=== PATIENT | male | born 1975 | race Caucasian/White ===

== ENCOUNTER 2017-04-18 18:33 | Observation (INO) | payer BC ==
[2017-04-18] MEDS ORDERED: SODIUM CHLORIDE 0.9% (FLUSH) 10 ML SYG IV PRN ×2 (19:08→22:36)
[2017-04-18] MEDS ORDERED: ASPIRIN TABLET 325 MG TAB PO ONE (19:08)
--- NOTE | 2017-04-18 19:23 | RAD ---
EXAM DESCRIPTION: Chest,1 View CLINICAL HISTORY: chest pain COMPARISON: None FINDINGS: Cardiac silhouette is within normal limits. There is no focal parenchymal or pleural disease. There is no acute osseous process visualized. IMPRESSION: No evidence of acute cardiopulmonary disease. Electronically signed by: Dayton Michaud MD 04/18/2017 7:22 PM CDT
--- NOTE | 2017-04-18 21:26 | ED.PDOC ---
History of Present Illness - General Chief Complaint: Chest Pain/VT Stated Complaint: chest pain Time Seen by Provider: 04/18/17 18:45 Source: patient, family Exam Limitations: no limitations - History of Present Illness Timing/Duration: 4-6 hours Severity/Quality: moderate Location: substernal Chest Pain Radiation: no radiation Activities at Onset: rest Prior Chest Pain/Cardiac Workup: no prior chest pain, no prior cardiac workup Improving Factors: nothing Worsening Factors: nothing Aspirin Treatment Today: no aspirin today Associated Symptoms: denies symptoms Allergies/Adverse Reactions: Allergies NO KNOWN ALLERGY Allergy (Verified 04/18/17 19:05) Home Medications: Ambulatory Orders NK [NK] 04/18/17 Review of Systems - Review of Systems Constitutional: States: no symptoms reported EENTM: States: no symptoms reported Respiratory: States: short of breath. Denies: cough Cardiology: States: chest pain. Denies: edema, palpitations, syncope Gastrointestinal/Abdominal: States: no symptoms reported Genitourinary: States: no symptoms reported Musculoskeletal: States: no symptoms reported Skin: States: no symptoms reported Neurological: States: no symptoms reported Endocrine: States: no symptoms reported Past Medical History (General) - Patient Medical History Hx Hypertension: Yes Surgical History: no surgical history - Vaccination History Hx Influenza Vaccination: Yes - Social History Hx Tobacco Use: No Hx Alcohol Use: No Hx Substance Use: No Hx Substance Use Treatment: No Hx Depression: No Family Medical History - Family History Mother Family History: Unknown Physical Exam - Physical Exam General Appearance: Alert, Well Nourished Eyes, Ears, Nose, Throat Exam: PERRL/EOMI, normal ENT inspection Neck: non-tender, supple Respiratory: lungs clear, normal breath sounds, no respiratory distress, no accessory muscle use, other - STERNUM SLIGHTLY TTP. Cardiovascular/Chest: normal peripheral pulses, regular rate, rhythm, no murmur Peripheral Pulses: radial,right: 2+, radial,left: 2+ Gastrointestinal/Abdominal: normal bowel sounds, soft Extremity: non-tender, normal inspection Neurologic: alert, normal mood/affect Skin Exam: normal color, warm/dry Lymphatic: no adenopathy Progress - Results/Orders Results/Orders: TROP X 2 NEG. EKG NSR. CBC, CMP NEG. COAGS NEG. PAIN WORSE W/ DEEP BREATH AND TTP, SUGGESTIVE OF COSTOCHONDRITIS, HOWEVER HAS ACS RISK FACTORS OF OBESTIY, UNTREATED HTN, LUCY, AND SEDENTARY LIFESTYLE, THUS ADMITTING FOR SERIAL TROP OVERNIGHT FOR CP R/O. THANK YOU, [facility], FOR TAKING CARE OF THIS PATIENT! Departure - Departure Clinical Impression: Chest pain, Dyspnea, Hypertension, uncontrolled Disposition: Admit Patient Condition: Good Diet: low salt diet Home Medications: Ambulatory Orders NK [NK] 04/18/17 Decision To Admit - Decistion To Admit Decision to Admit Reason: Admit from ER
--- NOTE | 2017-04-18 22:04 | HP ---
SUPERVISING PHYSICIAN: Jose Cruz Loza MD CHIEF COMPLAINT: Chest pain. HISTORY OF PRESENT ILLNESS: This is a 42-year-old male patient who had some midsternal chest pain starting about 4 o'clock this afternoon. He was at work typing and had had some radiation to the left arm. He felt like it was very heavy. It had nothing to do with his exertion. He did say he thought it was worse when he took a deep breath. He did not take anything to alleviate it. He has not had this type of problem in the past. In the Emergency Room, his laboratory was done and CBC was within normal limits. Coags were within normal limits. Chemistries were within normal limits with the exception that his anion gap was slightly low at 11.6 and random glucose was 111. His initial cardiac enzymes were negative. His subsequent troponin one hour later was also less than 0.02. A chest x-ray per radiologic interpretation showed no acute cardiopulmonary disease. EKG showed normal sinus rhythm. Vital signs stable were stable. His chest pain did subsided although he said occasionally he did continue to have it, but it was improved. I was called to place the patient in the hospital for observation. PAST MEDICAL HISTORY: None. PAST SURGICAL HISTORY: None. OUTPATIENT MEDICATIONS: None. ALLERGIES: NO KNOWN DRUG ALLERGIES. SOCIAL HISTORY: He is the [employer]. He is . He lives between [facility]. He denies any tobacco, ETOH or illicit drug use. REVIEW OF SYSTEMS: GENERAL: Denies fever, fatigue or weight changes. HEENT: Denies sinus symptoms, ear pain, vision changes or sore throat. RESPIRATORY: Denies wheezing, coughing or shortness of breath. CARDIAC: As per history of present illness. GASTROINTESTINAL: Denies nausea, vomiting, diarrhea, constipation or abdominal pain. GENITOURINARY: Denies hematuria, dysuria or nocturia. SKIN: Denies lesions or rashes. NEUROLOGIC: Denies headache, dizziness, or seizures. PHYSICAL EXAMINATION: VITAL SIGNS: Afebrile. Heart rate 74. Blood pressure 147/87. Blood pressure did get as high as 180/105 on admission and stayed around 165/95. Respiratory rate 18. O2 saturation 98% on room air. GENERAL: This is a 42-year-old, mildly obese, male patient who is lying in his hospital bed. He is in no acute distress. HEENT: Normocephalic, atraumatic. Pupils are equal and reactive. Oropharynx is clear. NECK: Supple without mass. RESPIRATORY: Clear to auscultation bilaterally. CARDIOVASCULAR: Regular rate and rhythm, sinus rhythm on the compliance monitor. ABDOMEN: Soft, nondistended, nontender. Bowel sounds are present. EXTREMITIES: No cyanosis, clubbing or edema. NEUROLOGIC: Awake, alert and oriented times three. LABORATORY: Labs and films are as per the history of present illness. ASSESSMENT: 1. Chest pain, rule out myocardial infarction in a patient with no known cardiac history. 2. Elevated blood pressure without a diagnosis of hypertension. 3. Mild obesity. 4. Elevated blood sugars. PLAN: I will place the patient in observation. I have initiated chest pain protocol. He will have two more sets of cardiac enzymes. I will order a lipid panel in the morning as well as hemoglobin A1c due to his elevated blood glucose. I will watch his blood pressure and he may need to be started on a low dose of lisinopril. He does not have a family physician although he has seen Dr. Inocencia Luna in the past. I will call [facility] tomorrow and make sure that Dr. Luna will accept him as a patient, but he will need a close followup as well as a cardiac workup. We will need to follow with some routine lab and hopefully he will be able to be discharged in the morning. Otherwise, we will continue to monitor the patient closely and follow as needed. Dr. Loza is the collaborating physician and available for consultation. #[id number] [facility]
[2017-04-18] MEDS ORDERED: NITROGLYCERIN 0.4 MG 25 EA TAB SL PRN (22:36)
[2017-04-18] MEDS ORDERED: ACETAMINOPHEN 325 MG TAB PO PRN (22:36)
[2017-04-18] MEDS ORDERED: MORPHINE SULFATE INJ 10 MG/ML VIAL IV PRN (22:36)
[2017-04-18] MEDS ORDERED: IV SET AND CAP CHANGE INJ INJ SCH (23:00)
[2017-04-19] MEDS ORDERED: PANTOPRAZOLE SODIUM TAB 40 MG PO SCH (06:30)
[2017-04-19] MEDS ORDERED: LISINOPRIL 10 MG TAB PO ONE (08:49)
[2017-04-19] MEDS ORDERED: ASPIRIN TABLET 325 MG TAB PO SCH (09:00)
[2017-04-19] MEDS ORDERED: SODIUM CHLORIDE 0.9% (FLUSH) 10 ML SYG IV SCH (09:00)
[2017-04-19 09:20] VITALS: BP 164/101; TEMP 97.9; O2SAT 95
--- NOTE | 2017-04-19 14:05 | DS ---
SUPERVISING PHYSICIAN: Jose Cruz Loza MD DISCHARGE DIAGNOSIS: 1. Chest pain of unknown origin, may be due to costochondritis or elevated blood pressure. He has no significant cardiac history and his cardiac enzymes were negative with a normal EKG. 2. Elevated blood pressure without a diagnosis of hypertension, started on lisinopril in hospital. 3. Mild obesity. 4. Elevated blood sugars with a hemoglobin A1c of 5.3. 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 He had been at work and at about 4 PM on the day of admission, he started having some midsternal chest pain starting. He was at work typing and had had some radiation to the left arm. He felt like it was a very heavy feeling in his chest. It had nothing to do with his exertion. It felt worse when he took a deep breath. He did not take anything to alleviate it. He has not had this type of problem in the past. In the Emergency Room, his laboratory was done and CBC was within normal limits. Coags and chemistries were all within normal limits with the exception that his anion gap was slightly low at 11.6 and random glucose was 111. His initial cardiac enzymes were negative. His subsequent troponin one hour later was also less than 0.02. A chest x-ray per radiologic interpretation showed no acute cardiopulmonary disease. EKG showed normal sinus rhythm. Vital signs stable were stable except his blood pressure was elevated to 180/105 and most of the time the systolic was between 150 and 170 and the diastolic was in the 80s and 90s. He was placed in observation in the hospital. HOSPITAL COURSE: His subsequent cardiac enzymes remained negative. His hemoglobin A1c was 5.3. His lipid panel showed triglycerides of 103, cholesterol 218, LDL 162.9, HDL 38. He had no further complaints of chest pain and this morning, he will be discharged in stable condition. DISCHARGE PLAN: the patient will be discharged in stable condition. I started him on some lisinopril as well as baby aspirin daily. He will see Dr. Luna on 04/21/17 at 10 AM. He will need a cardiac workup and also monitor his blood pressure to see if he needs changes to his lisinopril. He may need to have a statin added at some point. He will need a cardiac workup. He also needs to establish care with a physician as I believe Dr. Luna is seeing his family, but he has only lived in the area two years. Otherwise, he is to return to the hospital for any further complaints of chest pain or any other problems or he can call Dr. Luna's office and followup with him. DISCHARGE MEDICATIONS: 1. Lisinopril. 2. Nitroglycerin. 3. Baby aspirin. Dr. Loza is the collaborating physician and available for consultation. [facility][id number] [facility]
== END 2017-04-19 09:55 | disposition home or self-care (01) ==
LOC: ER 18:33 → MS 22:03
PROVIDERS: ADMIT Nurse Practitioner Acute Care; ATTEND Nurse Practitioner Acute Care
DX: R07.2 Precordial pain (principal); R03.0 Elevated blood-pressure reading, without diagnosis of hypertension; E66.9 Obesity, unspecified; R73.9 Hyperglycemia, unspecified; R06.00 Dyspnea, unspecified; Z68.30 Body mass index [BMI] 30.0-30.9, adult
CPT/HCPCS: 36415 ×5; 71010; 80048; 80061; 82550 ×3; 82553 ×3; 83036; 84484 ×4; 85025; 85610; 85730; 93005 ×4; 94760 ×4; 99284; G0378

== ENCOUNTER → 2018-01-12 | Outpatient (CLI) | payer BC | LOC: GMAJS 12:08 | PROVIDERS: ATTEND Physician Assistant | DX: Z00.00 Encounter for general adult medical examination without abnormal findings (principal); Z23 Encounter for immunization ==